=== PATIENT | female | born 1980 ===

== ENCOUNTER 2025-02-27 13:56 | Emergency (ER) | payer MEDICAID ==
[~2025-02-27] VITALS: Ht 162.6 cm; Wt 69.8 kg
[2025-02-27 14:01] VITALS: BP 133/77; PULSE 88; RESP 20; TEMP 98.3; O2SAT 98
[2025-02-27 14:20] LABS: URINE HCG NEGATIVE (NEG)
[2025-02-27 14:21] LABS: LEUKOCYTE ESTERASE ,URINE NEGATIVE (Neg); NITRITES, URINE NEGATIVE (Neg); OCCULT BLOOD,URINE LARGE (Neg)
[2025-02-27 14:26] LABS: UA COLLECTION TYPE CLN CATCH MIDSTREAM
[2025-02-27 14:27] LABS: SQUAMOUS EPITHELIAL CELL,UR MANY /LPF (FEW)
[2025-02-27 14:35] LABS: MEAN PLATELET VOLUME 8.0 FL (7.4-10.4); RED CELL DISTRIBUTION WIDTH 14.2 % (11.5-14.5)
[2025-02-27 14:54] LABS: CREATININE 0.81 MG/DL (0.40-0.90); TOTAL CARBON DIOXIDE 23.3 MMOL/L (24-32); eCRCL 77 ML/MIN; eGFR 77 ML/MIN
[2025-02-27] MEDS ORDERED: ondansetron 4mg rapidly disintigrating tab PO ONE (15:00)
== END 2025-02-27 15:53 | disposition left against medical advice (07) ==
LOC: ER 13:58
DX: R11.10 Vomiting, unspecified (principal); G43.909 Migraine, unspecified, not intractable, without status migrainosus; Z53.21 Procedure and treatment not carried out due to patient leaving prior to being seen by health care provider; Z88.2 Allergy status to sulfonamides
CPT/HCPCS: 36415; 80048; 81001; 81025; 83690; 85025; 99281